=== PATIENT | female | born 2000 ===

== ENCOUNTER 2020-08-23 00:37 | Emergency (ER) | payer SELFPAY ==
[~2020-08-23] VITALS: Ht 165.1 cm; Wt 63.6 kg
[2020-08-23 08:22] VITALS: BP 126/72; PULSE 107; TEMP 97.8
== END 2020-08-23 08:22 | disposition home or self-care (01) ==
LOC: COL.ER 00:37
DX: F10.129 Alcohol abuse with intoxication, unspecified (principal); Y90.9 Presence of alcohol in blood, level not specified